=== PATIENT | male | born 1960 | race African-American/Black ===

== ENCOUNTER 2024-01-28 13:59 | Inpatient (IN) | payer OTHER ==
[2024-01-28 15:33] VITALS: BMI 30.9
[2024-01-28] MEDS ORDERED: BENZONATATE 200 MG CAPSULE PO PRN (16:31)
[2024-01-28] MEDS ORDERED: ACETAMINOPHEN 325 MG TABLET (FP) PO PRN (16:31)
[2024-01-28] MEDS ORDERED: NICOTINE POLACRILEX 2 MG LOZENGE BC PRN (16:31)
[2024-01-28] MEDS ORDERED: NALOXONE (NARCAN) HCL 4 MG/0.1 ML SPRAY NS PRN (16:31)
[2024-01-28] MEDS ORDERED: NICOTINE POLACRILEX 2 MG GUM BUC PRN (16:31)
[2024-01-28] MEDS ORDERED: IBUPROFEN 600 MG TABLET (FP) PO PRN (16:31)
[2024-01-28] MEDS ORDERED: guaiFENesin 600 MG TABLET.ER (FP) PO PRN (16:31)
[2024-01-28] MEDS ORDERED: POLYETHYLENE GLYCOL (HEALTHYLAX) 3350 17 GM PACKET PO PRN (16:31)
[2024-01-28] MEDS ORDERED: LOPERAMIDE HCL 2 MG CAPSULE PO PRN (16:31)
[2024-01-28] MEDS ORDERED: IBUPROFEN 400 MG TABLET (FP) PO PRN (16:31)
[2024-01-28] MEDS ORDERED: P-EPHED 60MG/TRIPROLIDI 2.5MG TABLET PO PRN (16:31)
[2024-01-28] MEDS ORDERED: BENZOCAINE/MENTHOL (CHLORASEPTIC ) LOZENGE MM PRN (16:31)
[2024-01-28] MEDS: TUBERCULIN PPD 5 TU/0.1ML SYRINGE (IN PATIENT USE ONLY) ID ONE (20:09)
[2024-01-28] MEDS: MELATONIN 5 MG TABLETS PO SCH (22:21)
[2024-01-28] MEDS: THIAMINE 100 MG TABLET PO SCH (22:21)
[2024-01-28] MEDS: CARVEDILOL 3.125 MG TABLET (FP) PO SCH (22:21)
[2024-01-29] MEDS: PRENATAL VITAMINS W/ FOLIC ACID TABLET (FP) PO SCH (09:26)
[2024-01-29] MEDS: LISINOPRIL 20 MG TABLET PO SCH (09:26)
[2024-01-29] MEDS: HYDROCHLOROTHIAZIDE 25 MG TABLET (FP) PO SCH (09:27)
[2024-01-29] MEDS: BICTEGRAV/EMTRICIT/TENOFOV (BIKTARVY) 50-200-25 MG TABLET PO SCH (09:27)
[2024-01-29] MEDS ORDERED: PATIENT'S OWN MEDICATION (NON-FORMULARY) (Lisinopril/Hydrochlorothiazide [Lisinopril-Hctz PO SCH (10:00)
[2024-01-29] MEDS: methaDONE HCL 40 MG DISPERSABLE TABLET PO ONE (11:09)
[2024-01-29 11:23] LABS: HEMATOCRIT 45.9 % (35.4-49); HEMOGLOBIN 15.3 GM/dL (11.7-16.9); MCH 27.3 pg (25.7-33.7); MCHC 33.3 g/dl (32.0-35.9); MEAN CELL VOLUME 82.1 fl (80-96); MEAN PLT VOLUME 8.1 fl (7.5-11.1); PLATELET COUNT 204 10^3/uL (134-434); RDW 15.4 % (11.9-15.9); WHITE BLOOD COUNT 6.4 K/mm3 (4.0-10.0)
[2024-01-29 14:32] LABS: POTASSIUM 4.2 mmol/L (3.5-5.1)
[2024-01-29 14:38] LABS: ALBUMIN 3.5 g/dl (3.4-5.0)
[2024-01-29 14:41] LABS: CREATININE 0.9 mg/dL (0.55-1.3)
[2024-01-29 14:42] LABS: BILIRUBIN,TOTAL 0.7 mg/dL (0.2-1); TOT PROT 6.9 g/dl (6.4-8.2)
[2024-01-30] MEDS: methaDONE HCL 40 MG DISPERSABLE TABLET PO SCH (07:24)
[2024-01-30 10:26] LABS: PH,URINE 7.5 (5.0-8.0); URINE APPEARANCE CLEAR; URINE BILIRUBIN NEGATIVE (NEGATIVE); URINE COLOR YELLOW; URINE GLUCOSE (UA) NEGATIVE (NEGATIVE); URINE KETONE NEGATIVE (NEGATIVE); URINE LEUK ESTERASE NEGATIVE (NEGATIVE); URINE NITRITE NEGATIVE (NEGATIVE); URINE PROTEIN NEGATIVE (NEGATIVE)
[2024-01-31] MEDS ORDERED: LISINOPRIL 20 MG TABLET PO SCH (14:23)
[2024-01-31] MEDS ORDERED: AMMONIUM LACTATE 12% LOTION 225 GM BOTTLE TP PRN (14:26)
[2024-01-31] MEDS ORDERED: CARVEDILOL 3.125 MG TABLET (FP) PO SCH (14:41)
[2024-01-31] MEDS ORDERED: HYDROCHLOROTHIAZIDE 25 MG TABLET (FP) PO SCH (14:42)
[2024-02-01] MEDS ORDERED: LISINOPRIL 20 MG TABLET PO SCH (06:00)
[2024-02-01] MEDS: LISINOPRIL 20 MG TABLET PO SCH (06:11)
[2024-02-01] MEDS: HYDROCHLOROTHIAZIDE 25 MG TABLET (FP) PO SCH (09:47)
[2024-02-01] MEDS: CARVEDILOL 3.125 MG TABLET (FP) PO SCH (09:47)
[2024-02-01] MEDS: MAGNESIUM HYDROX 2400MG/30ML ORAL SUSPENSION 30 ML CUP PO PRN (18:38)
[2024-02-02] MEDS: TESTOSTERONE CYPIONATE 200 MG/ML VIAL IM SCH (10:31)
[2024-02-03] MEDS: DOCUSATE SODIUM 100 MG CAPSULE (FP) PO PRN (14:05)
[2024-02-04] MEDS: MAG HYDROX/AL HYDROX/SIMETH 30 ML UNIT-DOSE CUP PO PRN (20:02)
[2024-02-06] MEDS: methaDONE HCL 40 MG DISPERSABLE TABLET PO SCH (06:06)
[2024-02-07 06:28] VITALS: RESP 18; TEMP 97.7
[2024-02-07 09:23] VITALS: BP 146/84; PULSE 71
== END 2024-02-07 09:35 | disposition home or self-care (01) | DRG 772 ==
LOC: YASAS 13:59 → Y3NR 16:55 → Y3W 01-29 12:01
PROVIDERS: ADMIT Psychiatry & Neurology Pain Medicine; ATTEND Psychiatry & Neurology Pain Medicine
PROC: HZ42ZZZ Group Counseling for Substance Abuse Treatment, Cognitive-Behavioral (ICD-10-PCS; principal; 2024-01-28)
DX: F14.20 Cocaine dependence, uncomplicated (principal); F11.20 Opioid dependence, uncomplicated; F17.210 Nicotine dependence, cigarettes, uncomplicated; F32.A Depression, unspecified; Z21 Asymptomatic human immunodeficiency virus [HIV] infection status; I10 Essential (primary) hypertension; L85.3 Xerosis cutis; Z79.899 Other long term (current) drug therapy
CPT/HCPCS: 36415; 80053; 80305; 81003; 85027; 86780; 87811; 93005; 93010